=== PATIENT | male | born 1970 | race Two or more races ===

== ENCOUNTER 2021-08-22 19:50 | Emergency (ER) | payer SELFPAY ==
[2021-08-22 20:21] VITALS: BP 170/95; PULSE 110; TEMP 99; BMI 38.7
[2021-08-22] MEDS ORDERED: ACETAMINOPHEN 500 MG TABLET (FP) PO ONE (21:41)
[2021-08-22] MEDS ORDERED: ACETAMINOPHEN 325 MG TABLET (FP) ONE (22:01)
== END 2021-08-22 23:44 | disposition home or self-care (01) ==
LOC: JER 19:50
DX: S09.90XA Unspecified injury of head, initial encounter (principal); W19.XXXA Unspecified fall, initial encounter; Y92.9 Unspecified place or not applicable
CPT/HCPCS: 70450-TC; 99284-25